=== PATIENT | female | born 1985 | race Caucasian/White ===

== ENCOUNTER 2016-10-24 19:39 | Emergency (ER) | payer OTHER ==
[~2016-10-24] VITALS: Ht 154.9 cm; Wt 75.6 kg
[~2016-10-24 19:39] MED LIST: FRCT/ PO; HYDR25TA5 PO; ULT50HP PO
[2016-10-24 19:41] VITALS: TEMP 36.8; Ht 154.9 cm; Wt 75.6 kg
[2016-10-24] MEDS ORDERED: BUSP1TAB46 PO (19:49)
[2016-10-24] MEDS ORDERED: ULT50 PO (19:49)
[2016-10-24] MEDS ORDERED: ONDANSETRON 4MG OD TAB PO STA (20:01)
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
[2016-10-24] MEDS ORDERED: LISI-461 PO (21:04)
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
[2016-10-24] MEDS ORDERED: ONDA4TAB46 PO (21:32)
[2016-10-24] MEDS ORDERED: AMOX875T PO (21:32)
[2016-10-24] MEDS ORDERED: HYDR-5688 PO (21:32)
[2016-10-24] MEDS ORDERED: AMOXICIL/CLAVU 875MG HOME PACK PO ONE (21:45)
[2016-10-24] MEDS ORDERED: ONDANSETRON HOME PACK 4MG OD TAB PO ONE (21:45)
[2016-10-24] MEDS ORDERED: NORCO 5/325MG HOME PACK PO ONE (21:45)
[2016-10-24 21:46] VITALS: BP 141/89; PULSE 81; O2SAT 96
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
== END 2016-10-24 21:48 | disposition home or self-care (01) ==
LOC: C.EDB 19:41 → C.EDD 21:48
DX: S09.90XA Unspecified injury of head, initial encounter (principal); S00.83XA Contusion of other part of head, initial encounter; V00-Y99 External causes of morbidity; H72.92 Unspecified perforation of tympanic membrane, left ear; F41.9 Anxiety disorder, unspecified; N83.209 Unspecified ovarian cyst, unspecified side; M51.26 Other intervertebral disc displacement, lumbar region; F17.200 Nicotine dependence, unspecified, uncomplicated; Z79.899 Other long term (current) drug therapy; Z88.8 Allergy status to other drugs, medicaments and biological substances; Z98.51 Tubal ligation status